=== PATIENT | male | born 1955 ===

== ENCOUNTER 2024-02-07 08:28 | Emergency (ER) | payer MEDICARE, SELFPAY ==
[2024-02-07 08:35] VITALS: BP 122/64; PULSE 63; RESP 16; TEMP 36.1; O2SAT 98; BMI 23.0
--- NOTE | 2024-02-07 08:46 | ED_ITS ---
HPI - General Adult General Chief complaint: Extremity Pain/Injury, Upper Stated complaint: Fall yesterday, L arm injury Time Seen by Provider: 02/07/24 08:35 Source: patient Mode of arrival: ambulatory Limitations: no limitations History of Present Illness HPI narrative: 69-year-old male presenting today with left arm pain. Pain started yesterday after he fell onto a bench onto his left side. He denies pain anywhere else. He did not hit his head or lose consciousness. The discomfort bothered him in the middle of the night. He is able to move that arm without difficulty. Related Data Home Medications ?Medication ?Instructions ?Recorded ?Confirmed abiraterone 250 mg tablet tab PO 01/02/22 01/05/24 atorvastatin 20 mg tablet 20 mg PO 01/02/22 01/05/24 divalproex 250 mg tablet,extended tab PO 01/02/22 01/05/24 release 24 hr divalproex 500 mg tablet,extended tab PO 01/02/22 01/05/24 release 24 hr ferrous sulfate, dried 159 mg (45 tab PO 01/02/22 01/05/24 mg iron) tablet,extended release (iron ER) haloperidol 10 mg tablet 10 mg PO 01/02/22 01/05/24 haloperidol 5 mg tablet 5 mg PO 01/02/22 01/05/24 prednisone 5 mg tablet 5 mg PO 01/02/22 01/05/24 propranolol 60 mg capsule,24 cap PO 01/02/22 01/05/24 hr,extended release risperidone microspheres 50 mg/2 ea IM 01/02/22 01/05/24 mL intramuscular susp,ext release (Risperdal Consta) thiothixene 5 mg capsule 5 mg PO 01/02/22 01/05/24 diphenhydramine HCl 50 mg capsule mg PO 01/05/24 01/05/24 (Banophen) hydrocortisone 10 mg tablet mg PO 01/05/24 01/05/24 thiothixene 10 mg capsule 10 mg PO QPM 01/05/24 02/07/24 Previous Rx's ?Medication ?Instructions ?Recorded ibuprofen 600 mg tablet 600 mg PO TID PRN pain #30 tabs 01/02/22 Allergies Allergy/AdvReac Type Severity Reaction Status Date / Time gemfibrozil (From Lopid) Allergy Unknown Verified 02/07/24 08:39 Review of Systems Status of ROS: Reports: 6 or more systems reviewed and unremarkable except as noted in History and below [facility] Social History Smoking Status: Current some day smoker Exam Narrative: Exam Narrative: Well-nourished patient in no acute distress. Alert and oriented. Answers questions appropriately. Mood and affect are appropriate. Thoughts are goal oriented and rational. No tangential or magical thinking noted. Patient speaks in full sentences without needing to catch breath. HEENT: Normocephalic atraumatic. Extremities: Normal appearance peers there is no swelling, erythema or ecchymosis noted of the left upper extremity. He has full range of motion at the shoulder and elbow without significant difficulty. He has mild tenderness to palpation of the mid humerus. When I talked to him he puts his left elbow on his knee and rests his head on his left hand without discomfort. Const: Vital Signs, click to edit/add: Vital Signs - 24 hr 02/07/24 08:35 Temperature 97 F L Pulse Rate [Right Pulse Oximeter] 63 Respiratory Rate 16 Blood Pressure [Ri ght Upper Arm] 122/64 Pulse Oximetry 98 Oxygen Delivery Me thod Room Air Course Vital Signs Vital signs: Initial Vital Signs Temperature 97 F L 02/07/24 08:35 Temperature Source Temporal Artery Scan 02/07/24 08:35 Pulse Rate 63 02/07/24 08:35 Pulse Rhythm Regular 02/07/24 08:35 Pulse Strength 3+ Normal 02/07/24 08:35 Respiratory Rate 16 02/07/24 08:35 Blood Pressure 122/64 02/07/24 08:35 Blood Pressure Mean 83 02/07/24 08:35 Blood Pressure Position Sitting 02/07/24 08:35 Pulse Oximetry 98 02/07/24 08:35 Oxygen Delivery Method Room Air 02/07/24 08:35 Vital Signs Temperature 97 F L 02/07/24 08:35 Pulse Rate 63 02/07/24 08:35 Respiratory Rate 16 02/07/24 08:35 Blood Pressure 122/64 02/07/24 08:35 Pulse Oximetry 98 02/07/24 08:35 Oxygen Delivery Method Room Air 02/07/24 08:35 Temperature 97 F L 02/07/24 08:35 Pulse Rate 63 02/07/24 08:35 Respiratory Rate 16 02/07/24 08:35 Blood Pressure 122/64 02/07/24 08:35 Pulse Oximetry 98 02/07/24 08:35 Oxygen Delivery Method Room Air 02/07/24 08:35 Medical Decision Making MDM Narrative Medical decision making narrative: Contusion of the left upper extremity. I do not see any evidence of fracture on examination today. Discussed symptomatic treatment. Discharge Plan Discharge Clinical Impression: Contusion of arm, left Patient Disposition: Home, Self-Care Condition: Stable Instructions: Contusion in Adults (ED) Additional Instructions: Okay to use Tylenol 1000 mg every 8 hours as needed. Okay to ice or heat the area, do not apply ice or heat directly to the skin or use for more than 20 minutes at a time. Prescriptions: No Action thiothixene 5 mg capsule 5 mg PO abiraterone 250 mg tablet PO haloperidol 10 mg tablet 10 mg PO haloperidol 5 mg tablet 5 mg PO prednisone 5 mg tablet 5 mg PO iron 159 mg (45 mg iron) tablet extended release PO Risperdal Consta 50 mg/2 mL suspension,extended rel recon IM divalproex 250 mg tablet extended release 24 hr PO divalproex 500 mg tablet extended release 24 hr PO propranolol 60 mg capsule,extended release 24 hr PO atorvastatin 20 mg tablet 20 mg PO ibuprofen 600 mg tablet 600 mg PO TID PRN (Reason: pain) Qty: 30 0RF diphenhydramine HCl [Banophen] 50 mg capsule PO hydrocortisone 10 mg tablet PO thiothixene 10 mg capsule 10 mg PO QPM Follow Up/Referrals: Castro Fung MD [Primary Care Provider] - Stand Alone Forms: [facility] Info Instructions
== END 2024-02-07 09:00 | disposition home or self-care (01) ==
LOC: ED 08:50
PROVIDERS: Emergency Provider Family Medicine; PCP Family Medicine
DX: S50.12XA Contusion of left forearm, initial encounter (principal)
CPT/HCPCS: 99283

== ENCOUNTER 2024-08-26 07:29 | Outpatient (CLI) | payer MEDICARE, SELFPAY ==
--- OUTSIDE RECORDS SUMMARY | 2017-06-16 06:19 | XMS_ITS | Continuity of Care Document ---
Author Organization [facility] Address [address] [address] [place] [address] Phone Care Team Providers Care Oracle Pl Sql Developer Name Role Phone Link Charles ESCALERA Unavailable Unavailable Medications Medication Instructions Dosage Effective Dates (start - stop) Status Comments MiralaxBisacodylMagCit Colon Prep Use as directed - Active Advance Directives Directive Yes / No Effective Date File Name No Information Encounters Encounter Description Practice Location Reason(s) For Visit Diagnoses Date Provider Providers Copied on Encounter [facility], [address] [address], [place], [place], [id number], [place] tel:[phone] [facility] No Information 8 Link MD Soto. [address] [facility], [facility] [address], [place], [place], [id number], [place]. tel:[phone] [facility], [address] [address], [place], [place], [id number], [place] tel:[phone] No Information 8 No Information Referring Provider: Lv Joiner MD, [address] [place], [address]. tel:[phone] Family History Family Member Type Diagnosis Age At Onset No Information Payers Payer name Insurance type Covered alliance party ID Authoriza tion(s) No Information Social History Type Description Quantity Date Captured Comments Sex Male Smoking Status No Information Chief Complaint And Reason For Visit No Information Reason For Referral Reason For Referral No Information History Of Present Illness Encounter Date Complaint History Of Prese nt Illness No Information Functional Status Date Functional Assessmen t No Information Instructions Date Instruction Additional Infor mation No Information Assessments Type Assessment Date No Information Patient Care Teams Name Effective Dates (start - stop) Status Members No Information
--- OUTSIDE RECORDS SUMMARY | 2024-08-26 09:01 | XMS_ITS | Clinical Summary ---
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 Name Role Phone Julian Bartholomew MD Unavailable Danish Horton MD Primary Care Provider + Isabel Romero RN Unavailable [phone] Allergies Active Allergy Reactions Criticality Noted Date Comments Bee Pollen Other - Describe In Comment Field 12/12/2021 Seasonal allergies, nasal congestion Gemfibrozil Dizziness 08/25/2013 Pollen Extracts Other - Describe In Comment Field 12/12/2021 Seasonal allergies, nasal congestion Tamsulosin Other - Describe In Comment Field,Nausea Only 01/24/2014 priapism Medications acetaminophen (TYLENOL) 325 mg tablet Take 1 tablet by mouth every 4 hours if needed. Max acetaminophen dose: 4000mg in 24 hrs. 0 03/25/19 19 Active aspirin (ECOTRIN) 81 mg enteric coated tabletIndications :Mixed hyperlipidemia Take 1 tablet by mouth once daily with a meal. 90 tablet 3 01/11/20 20 Active vitamin e 400 unit capsuleIndication s:Neuroleptic-ind uced tardive dyskinesia,Schizo phrenia, unspecified type (HC) Take 1 Capsule (400 units) by mouth once daily. 0 01/18/20 21 Active Wnlxp-7-IUX-EPA-F lianne Oil 1,000 mg (120 mg-180 mg) cap Take 1 Capsule (1,000 mg) by mouth. 0 09/13/19 22 Active cyanocobalamin (Vitamin B-12) 50 mcg tabletIndications :Recurrent depression Take 2 Tablets (100 mcg) by mouth once daily. 30 Tablet 11 01/01/20 Active abiraterone 500 mg tab 02/08/20 Active potassium chloride (KLOR-CON M20) 20 mEq extended-release tablet (part/cryst) 01/09/20 Active hydrocortisone (CORTEF) 10 mg tablet Take 2 tabs with breakfast and 1 with evening breakfast/dinner . Take for duration of Zytiga therapy. 02/05/20 Active cholecalciferol, Vitamin D3, 2,000 unit tabletIndications :Vitamin D deficiency TAKE 1 TABLET BY MOUTH DAILY 28 Tablet 12 03/05/20 23 Active VITAMIN E, BULK, MISC As directed 400 units. once daily. Active ibuprofen (ADVIL; MOTRIN) 200 mg tablet Take 200 mg by mouth. 1 - 2 tablets q 4 - 6 hours as needed for pain Active loperamide (IMODIUM) 2 mg capsule 2 mg. Take 2 capsules (4mg) orally with 1st loose stool, then 1 capsule (2mg) with other loose stools. Max 16 mg in 24 hrs. Active mag hydrox/aluminum hyd/simeth (MAALOX ORAL) Take by mouth. 1 - 2 tsp (5 - 10 ml) PO one time daily between meal and at bedtime as needed for heartburn and/or upset stomach Active magnesium hydroxide (MILK OF MAGNESIA ORAL) Take by mouth. take 1 - 2 tbsp (15 - 30 ml) PO every day (preferably at bedtime) as needed for constipation. Recommend 8 oz of water after each dose. Noitfy nurse if no results within 12 hours. Active Slow Release Iron 142 mg (45 mg iron) Extended-Release tabletIndications :Anemia of unknown etiology TAKE 1 TABLET BY MOUTH DAILY 28 Tablet 12 12/29/19 24 Active Diaper,Brief, Adult,Disposable (Prevail Underwear)Indicat ions:Continuous urine leakage USE DIRECTED UP 3-4 TIMES PER DAY 400 Each 2 02/26/20 24 Active polyethylene glycol-electrolyt e (GOLYTELY) 236-22.74-6.74 -5.86 gram suspensionIndicat ions:Encounter for screening colonoscopy Drink 2 liters (half the bottle) the day before colonoscopy and 2 liters (remaining prep) 6 hours prior to colonoscopy appointment. 4000 mL 04/08/19 25 Active propranolol ER (INDERAL LA) 60 mg Cs24 Sustained-Release capsuleIndication s:Drug-induced tremor Take 1 Capsule (60 mg) by mouth once daily. 90 Capsule 3 05/10/19 25 Active thiothixene 10 mg capsuleIndication s:Schizoaffective disorder, bipolar type (HC) Take 1 Capsule (10 mg) by mouth once daily in the morning. 90 Capsule 3 05/10/19 25 Active thiothixene 5 mg capsuleIndication s:Schizoaffective disorder, bipolar type (HC) Take 1 Capsule (5 mg) by mouth at bedtime. In addition to the morning dose 90 Capsule 3 05/10/19 25 Active diphenhydrAMINE (Diphenhist) 25 mg capsuleIndication s:Insomnia due to mental condition,Adjustm ent disorder with anxiety May take 1 capsule (25 mg) by mouth as needed 2 times a day for anxiety, please wait at least 2 hours between doses 90 Capsule 3 05/10/19 25 Active diphenhydrAMINE (BENADRYL) 50 mg capsuleIndication s:Schizoaffective disorder, bipolar type (HC),Insomnia due to mental condition,Adjustm ent disorder with anxiety Take 1 Capsule (50 mg) by mouth three times daily. Wait at least 4 hours between doses 270 Capsule 3 05/10/19 25 Active atorvastatin 20 mg tabletIndications :Mixed hyperlipidemia Take 1 Tablet (20 mg) by mouth once daily. 90 Tablet 07/27/19 25 Active polyethylene glycol-electrolyt e 236-22.74-6.74 -5.86 gram suspensionIndicat ions:Encounter for screening colonoscopy Drink 2 liters (half the bottle) the day before the procedure and 2 liters (half the bottle) 6 hours prior to procedure. 4000 mL 08/12/19 25 Active ibuprofen (ADVIL; MOTRIN) 600 mg tabletIndications :Body aches Take 1 Tablet (600 mg) by mouth 4 times daily if needed for Pain. Maximum of 3200 mg in 24 hours. 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 tremor 12/23/2021 Iron deficiency anemia 11/04/2021 Overview (11/04/2021): Per pathology review of the slides/labs 10/2021 Increasing prostate specific antigen (PSA) level after treatment for malignant neoplasm of prostate 09/16/2021 Primary malignant neoplasm of prostate 1 Vitamin D deficiency 11/05/2020 DDD (degenerative disc disease), lumbar 08/11/19 19 Encephalopathy 12/24/2017 Schizoaffective disorder, bipolar type 8 Long-term use of high-risk medication 07/28/2017 Drug overdose 05/18/2017 H/O prostate cancer 03/17/2017 Stress incontinence 11/23/2015 Erectile dysfunction following radical prostatec ysabel 12/11/2014 Family history of coronary artery disease 2014 Attempted suicide 01/13/2014 Adjustment disorder with anxiety 11/23/2013 Alcohol use disorder, severe , in sustained remission since 200810/17/2013 Overview (10/10/2021): Overview: Alcoholism Pers Hx per External Record Alcoholism Pers Hx per External Record Mixed hyperlipidemia 09/10/2010 Impaired fasting glucose 09/10/2010 Family history of colon cancer 09/06/2010 Overview (09/06/2010): Siblings have colon polyps Colon polyps 09/06/2010 Overview (05/04/2019): Colonoscopy 04/2011 polyps repeat in 3 years Colonoscopy 04/2014 polyps repeat in 5 years Colonoscopy 04/2019 polyp, repeat in 5 years Resolved Problems Problem Noted Date Diagnosed Date Resolved Date Schizoaffective disorder, chronic condition 12/12/2017 12/22/2017 Schizoaffective disorder 11/27/201710/2021 Neuroleptic-induced tardive dyskinesia 01/21/2017 12/14/2023 Dementia praecox 11/23/2013 09/13/2021 Recurrent depression 10/20/2013 022 Prostate cancer 07/06/2013 12/22/2017 Overview (11/15/2013): Delvis 3+4=7 Other schizoaffective disorders 09/06/2010 12/12/2017 Encounters Date Type Department Care Team Description 08/26/2024 Travel 08/11/2024 Orders Only [facility] [address] [place] [address] Orlando Bowen MD <No scans attached> 08/11/2024 Telephone [facility] [address] [place] [address] Danish Horton MD request (fax) 08/05/[address] [address] Danish Horton MD Refill Request ( ) 08/04/[address] [address] Danish Horton MD Form 07/26/2024 10:00 AM CDT Office Visit [address] [place] [address] Danish Horton MD Preoperative Exam (Colonoscopy, 08/19/24, [place], Dr. Bowen) 07/26/2024 Travel 07/25/[address] [place] [address] Orlando Bowen MD Appointment (Colonoscopy) 07/25/[address] [place] [address] Orlando Bowen MD Appointment 06/16/[address] [address] Danish Horton MD Refill Request (Atorvastatin) from Last 3 Months Immunizations Immunization Administration Dates Next Due COVID-19 VACCINE SPIKEVAX (M ODERNA 50MCG/0.5ML) 12YO+ PFS 12/31/2022 COVID-19 vaccine (Moderna 100mcg/0.5mL) AVELINA DEWEY 08/15/2021,01/14/2021,04/19/2020,2020 Influenza RIV4 (Age 18+ Year s) PRESERV FREE 01/14/2021 Influenza, High-dose Inactivated 12/15/2023 Influenza, Inactivated AIIV4 (Age 65+ Years) Preserv Free 12/31/2022,01/14/2021,01/06/2020,2019 Pneumococcal Conj 20-valent (Prevnar 20) 01/06/2022 Pneumococcal conj 13-Valent (Prevnar 13) 11/05/2020 Td (Age >=7 Years) 10/02/2007 Td, Preservative Free (age > = 7 Years) 10/02/2007 Tdap 09/06/2010 Family History Medical History Relation Name Comments Psychiatric illness Brother schizoph rylan Suicide Attempts Brother incomplete Cancer-colon Father d 71 Cancer-prostate Father Heart Disease Maternal Grandfather [place] Heart Disease Maternal Grandmother [place] Other Mother b 1927 moved to assisted living 10/2020 Other Other all 8 sibs have polyps Relation Name Status Comments Brother Father (Age 72) Prostate a nd colon cancer Maternal Grandfather Maternal Grandmother Mother Alive Other Social History Tobacco Use Types Packs/Day Years Used Date Smoking Tobacco: Some Days Cigars Smokeless Tobacco: Never Tobacco Cessation:Ready to Q uit: No; Counseling Given: Yes Alcohol Use Standard Drinks/Week Comments Yes 0 (1 standard drink = 0.6 oz pur e alcohol) 1 courtney a month PHQ-2 Answer Date Recorded PHQ-2 TOTAL SCORE 0 05/09/2024 Social Connections Answer Date Recorded Do you often feel lonely or isolated from those around you? 0 07/26/2024 Alcohol Use Answer Date Recorded How often do you have a drink containing alcohol ? 1 10/10/2021 How many drinks containing a lcohol do you have on a typical day when you are drinking? 0 10/10/2021 How often do you have five or more drinks on one occasion? 0 10/10/2021 Financial Resource Strain Answer Date R ecorded Difficulty of Paying Living Expenses 3 07/26/2024 Difficulty of Paying Living Expenses Not on file 07/26/2024 Food Insecurity Answer Date Recorded Do you worry your food will run out before you are able to buy more? 1 07/26/2024 Transportation Needs Answer Date Record ed Does lack of transportation keep you from medica l appointments? 1 07/26/2024 Does lack of transportation keep you from work, meetings or getting things that you need? 1 07/26/2024 Housing Stability Answer Date Recorded What is your housing situation today? 1 07/26/2024 Utilities Answer Date Recorded Do you have trouble paying f or utilities (for example, heat, electricity, water, phone)? 1 07/26/2024 Education Answer Date Recorded What is the highest level of school you have completed or the highest degree you have received? Associate degree: occupational, technical, or vocational program 09/13/2021 Sex and Gender Information Value Date Recorded Sex Assigned at Not on file Legal Sex Male 8:10 AM [employer] Gender Identity Not on file Sexual Orientation Not on file Occupation Industry Job Start Date Job End Date Not on file Not on file Not on file Not on file Not on file Not on file Not on file Not on file Obstetrics History Last Filed Vital Signs Vital Sign Reading Time Taken Comments Blood Pressure 133/63 07/26/2024 9:47 AM CDT Pulse 62 07/26/2024 9:47 AM CDT Temperature 36.4 C (97.5 F) 07/26/2024 9:47 AM CDT Respiratory Rate 16 12/22/2017 3:21 AM CDT Oxygen Saturation 98% 07/26/2024 9:47 AM CDT Inhaled Oxygen Concentration - - Weight 70.6 kg (155 lb 9.6 oz) 07/26/2024 9:47 A M CDT Height 172.7 cm (5' 8) 07/26/2024 9:47 AM CDT Body Mass Index 23.66 07/26/2024 9:47 AM CDT Plan of Treatment Upcoming Encounters Date Type Department Care Team (Late st Contact Info) Description 09/06/2024 2:00 PM CDT Office Visit [facility] [address] [place] [address] David Linder MD [address] [place] [address] Health Maintenance Due Date Last Done Comments Zoster (shingles) series for age 50+ (1 of 2) 1973 RSV vaccine for adults or (1 - Risk 60-74 years 1-dose series) 2014 AAA screening age 65-74 2019 07/12/2013 Tetanus booster 09/06/2020 09/06/2010, 09/07, 10/02/2007 Medicare Wellness for age 65+ 01/01/2024 12/31/2022, 11/05/2020, 08/10/2018, Additional history exists COVID-19 vaccine series (8 - Moderna risk season) 2024 12/15/2023, 12/31/2022, 12/17/2021, Additional history exists Depression screening for age 12+ 05/09/2025 05/09/2024, 12/14/2023, 05/26/2023, Additional history exists BMI (ht and wt on same day) for age 18+ 07/26/2025 07/26/2024, 05/26/2023, 05/18/2023, Additional history exists Lipids for age 45-75 10/26/2028 10/27/2023, 09/23/2022, 09/12/2021, Additional history exists Colonoscopy through age 75 08/26/202908/26, 05/03/2019, 05/03/2019, Additional history exists Tdap Completed 09/06/2010 Hepatitis C screening for age 18-79 Completed 01/11/2020 Pneumococcal series for age 50+ Completed 01/06/2022, 11/05/2020 Influenza Vaccine Completed 12/15/2023, , 01/14/2021, Additional history exists Hepatitis B series for 19+ Aged Out N o longer eligible based on patient's age to complete this topic Goals Goal Patient Goal Type Associated Problems Recent Progress Patient-Stated? Author BLOOD PRESSURE - MAINTAINS BP less than 140/90 Blood Pressure No Castro Fung MD Procedures Procedure Name Priority Date/Time Associated Diagnosis Comments COLONOSCOPY SCREENING Routine 08/26/2024 7:17 AM CDT Encounter for screening colonoscopy LIPID PANEL W REFLEX MEASURED LDL Routine 10/27/2023 1:06 PM CDT Long-term use of high-risk medication ANTI HCV Routine 01/11/2020 12:07 PM [employer] Need for hepatitis C screening test CT ABDOMEN PELVIS W Routine 07/12/2013 1 1:01 AM CDT Malignant neoplasm of prostate (HC) from Last 3 Months or Most Recently Relevant to Health Maintenance Results * (ABNORMAL) LIPID PANEL W REFLEX MEASURED LDL (10/27/2023 1:06 PM CDT) CHOLESTEROL,TOTAL 160 100 - 199 mg/dL 10/27/2023 11:32 PM CDT [facility] Comment: Cholesterol, Total Reference Ranges Desirable <200 mg/dL Borderline 200-239 mg/dL High >=240 mg/dL TRIGLYCERIDES 200(H) <150 mg/dL 10/27/2023 11:32 PM CDT [facility] HDL CHOLESTEROL 39(L) >40 mg/dL 11:32 PM CDT [facility] NON-HDL CHOLESTEROL 121 <145 mg/dl 10/27/2023 11:32 PM CDT [facility] CHOL/HDL RATIO 4.10 <4.50 10/27/2023 11:32 PM CDT [facility] LDL CHOLESTEROL 81 <=130 mg/dL 10/27/2023 11:32 PM CDT [facility] VLDL CHOLESTEROL 40(H) <=30 mg/dL 10/27/2023 11:32 PM CDT [facility] PROVIDER ORDERED STATUS RANDOM 10/27/2023 11:32 PM CDT [facility] Blood BLOOD SPECIMEN / Unknown Venipuncture / Unknown 10/27/2023 1:06 PM CDT 10/27/2023 1:07 PM CDT us David Linder MD CHEMISTRY Final Result [facility] [address] [place] [address], * ANTI HCV (01/11/2020 12:07 PM [employer]) HEPATITIS C ANTIBODY Non-React dread Non-React dread 01/11/2020 6:50 PM [employer] [facility] Comment:Antibodies to HCV no t detected; does not exclude the possibility of exposure to HCV. Blood BLOOD SPECIMEN / Unknown Venipuncture / Unknown 01/11/2020 12:07 PM [employer] 01/11/2020 12:07 PM [employer] us Castro Fung MD SEND OUTS Final Re sult [facility] [address] [place] [address], [place] * COLONOSCOPY (05/03/2019 8:39 AM [employer]) 05/03/2019 8:39 AM [employer] Narrative Transcriptions Orlando Bowen MD - 05/03/2019 11:11 AM CST Patient Name: Jesus Trevino Procedure Date: 05/03/2019 Gender: Male Date of : 1955 Admit Type: Outpatient Procedure: Colonoscopy Proceduralist: Orlando Bowen MD , Michelle Horan (Nurse) Indications/Pre-Op Diagnosis: Surveillance: Personal history ofadenomatous polyps on last colonoscopy 5 years ago, Last colonoscopy: April 2014 Medications: Fentanyl 100 micrograms IV, Midazolam 2 mgIV, The level of sedation administered wasmoderate Procedure Description: The patient had risks, benefits and alternatives explained to andgave informed consent. The patient had a stable cardiopulmonary status and judged an adequate candidate for conscious sedation. The Colonoscope was passed through the anus and advanced to thececum, identified by appendiceal orifice and ileocecal valve. Thecolonoscopy was performed without difficulty. The patient tolerated the procedure well. The quality of the bowel preparation was good. The ileocecal valve, appendiceal orifice, and rectum were photographed. Complications: No immediate complications. Estimated Blood Loss & Specimen: Estimated blood loss: none. Specimen collected - Yes and sent to Laboratory Findings: The perianal and digital rectal examinations were normal. A 3 mm polyp was found in the sigmoid colon. The polyp was sessile.The polyp was removed with a cold snare. Resection and retrieval were complete. The exam was otherwise without abnormality on direct and retroflexion views. Impressions/Post-Op Diagnosis: - One 3 mm polyp in the sigmoid colon, removed with a cold snare. Resected and retrieved. - The examination was otherwise normal on direct and retroflexionviews. Recommendation: - Patient has a contact number available for emergencies. The signsand symptoms of potential delayed complications were discussed with the patient. Return to normal activities tomorrow. Written discharge instructions were provided to the patient. - Resume previous diet. - Continue present medications. - Await pathology results. - Repeat colonoscopy in 5 years for surveillance. Moderate Sedation: Moderate (conscious) sedation was administered by the endoscopy nurse and supervised by the endoscopist. The following parameters were monitored: oxygen saturation, heart rate, respiratory rate, blood pressure, adequacy of pulmonary ventilation and reponse to care. [facility] and nursing notes for moderate sedation details. Total physician intraservice time was 17 minutes. Orlando Bowen MD 05/03/2019 11:11:06 AM This report has been signed electronically. Note Initiated On: 05/03/2019 8:39 AM Procedure Code(s): --- Professional --- 04835, Colonoscopy, flexible; with removalof tumor(s), polyp(s), or other lesion(s) bysnare technique Diagnosis Code(s): --- Professional --- Z86.010, Personal history of colonicpolyps D12.5, Benign neoplasm of sigmoid colon CPT copyright 2018 [employer] [place] [employer]. All rights reserved. The codes documented in this report are preliminary and upon division field inspector reviewmay be revised to meet current compliance requirements. Scope In: 10:53:42 AM Scope Withdrawal Time 0 hours 9 minutes 6 seconds Scope Out: 11:08:53 AM us Orlando Bowen MD PROCEDURE ORD Final Res ult * CT ABDOMEN PELVIS W (07/12/2013 11:01 AM CDT) Anatomical Region Laterality Modality Abdomen, Pelvis, AORTA, LIVER, SPLEEN Computed Tomography 07/12/2013 11:2 8 AM CDT Narrative 07/12/2013 11:28 AM CDT INDICATION: Prostate cancer. Prior history of herniorrhaphy. Technique: Multi detector contrast-enhanced helical CT of the abdomen pelvis was performed with administration of oral and uneventful intravenous administration of 99 cc of Omnipaque 2nd 350. Sagittal coronal reformats generated. The all. Findings: There are fibroatelectatic changes are present at the lung bases bilaterally. No consolidations or masses seen. No mass is identified within the liver, spleen, adrenal glands or pancreas. A small accessory splenule is seen at the inferior tip of the spleen. No right renal masses are seen. Small cortical cyst at the lower pole of left kidney. No calcified gallstones are evident. The abdominal aorta is normal in caliber. There is prominence of the submucosal fat involving the transverse and descending colon which can be seen with chronic inflammatory bowel disease. No acute pericolonic inflammatory changes are seen. Mild colonic diverticulosis is evident. The prostate is heterogeneous. No bladder masses are seen. No significantly enlarged lymph nodes are appreciated. The appendix demonstrates a normal appearance. No convincing evidence of metastatic disease within the visualized osseous structures. There is suggestion of a hemangioma within the left proximal sacrum. Asymmetric prominence of the fat within the left inguinal canal. Impression: 1. No evidence of metastatic disease within the abdomen or pelvis. 2. Prominence of the submucosal fat in the colonic wall involving the transverse and descending colon. This finding can be seen with chronic inflammatory bowel disease. 3. Colonic diverticulosis without current evidence of diverticulitis. 4. Small cyst lower pole left kidney. Dictated by Papa Rowley @ Jul 12 2013 11:28AM (Electronically Signed) Procedure Note Eloy Rowley DO - 07/12/2013 INDICATION: Prostate cancer. Prior history of herniorrhaphy. Technique: Multi detector contrast-enhanced helical CT of the abdomen pelvis wasperformed with administration of oral and uneventful intravenousadministration of 99 cc of Omnipaque 2nd 350. Sagittal coronal reformatsgenerated. The all. Findings: There are fibroatelectatic changes are present at the lung basesbilaterally. No consolidations or masses seen. No mass is identifiedwithin the liver, spleen, adrenal glands or pancreas. A small accessorysplenule is seen at the inferior tip of the spleen. No right renal massesare seen. Small cortical cyst at the lower pole of left kidney. Nocalcified gallstones are evident. The abdominal aorta is normal incaliber. There is prominence of the submucosal fat involving thetransverse and descending colon which can be seen with chronicinflammatory bowel disease. No acute pericolonic inflammatory changes areseen. Mild colonic diverticulosis is evident. The prostate isheterogeneous. No bladder masses are seen. No significantly enlargedlymph nodes are appreciated. The appendix demonstrates a normalappearance. No convincing evidence of metastatic disease within thevisualized osseous structures. There is suggestion of a hemangioma withinthe left proximal sacrum. Asymmetric prominence of the fat within the leftinguinal canal. Impression: 1. No evidence of metastatic disease within the abdomen or pelvis. 2. Prominence of the submucosal fat in the colonic wall involving thetransverse and descending colon. This finding can be seen with chronicinflammatory bowel disease. 3. Colonic diverticulosis without current evidence of diverticulitis. 4. Small cyst lower pole left kidney. 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 01/26/2018 3:20 PM IVY MENDEZ, 01/21/18 * Full Code (Latest Code Status on File) Date Activated Date Inactivated Comments 12/11/2017 10:49 AM 12/22/2017 7:47 PM Question Answer Comments Code Status Discussion: Not Discussed * Full Code Date Activated Date Inactivated Comments 11/27/2017 4:52 PM 12/07/2017 2:50 PM Question Answer Comments Code Status Discussion: Not Discussed Care Teams Pickling Machine Operator Relationship Specialty Start Date End Date Votel, Danish Austin MD [address] [place] [address] PCP - General Family Practice 01/20/23 Julian Bartholomew MD Surgery - Urology 08/22/13 Isabel Romero, RN [facility] [address] [id number] [employer] - [facility] Registered Nurse 03/09/23 Rochelle Gilbert [place], [place] [id number] [employer] 06/10/24
--- NOTE | 2024-08-26 09:11 | P.ANES_ITS ---
Anesthesia Charges Start Date/Time Anesthesia Start Date: 08/26/24 Anesthesia Start Time: 08:34 Stop Date/Time Anesthesia Stop Date: 08/26/24 Anesthesia Stop Time: 09:09 Summary Extremes of Age - Over 70 or under 1: INTERNATIONAL TRAVEL CONSULTANT Coding CPT Codes CPT Codes: ANES LWR INTST NDSC NOS - 79266 ([id number]) P3 - PATIENT W/SEVERE SYS DISEASE, QX - INTERNATIONAL TRAVEL CONSULTANT SVC W/ MD MED DIRECTION, QK - BALANCE WHEEL SCREW HOLE TAPPER 2-4 CNCRNT ANES PROC Additional Codes: Summary - Extremes of Age - Over 70 or under 1: INTERNATIONAL TRAVEL CONSULTANT ([id number])
--- NOTE | 2024-08-26 09:11 | W.ANESCHARGE ---
Anesthesia Charges Start Date/Time Anesthesia Start Date: 08/26/24 Anesthesia Start Time: 08:34 Stop Date/Time Anesthesia Stop Date: 08/26/24 Anesthesia Stop Time: 09:09 Summary Extremes of Age - Over 70 or under 1: LEACH TANK TENDER Coding CPT Codes CPT Codes: ANES LWR INTST NDSC NOS - 74727 ([id number]) P3 - PATIENT W/SEVERE SYS DISEASE, QX - LEACH TANK TENDER SVC W/ MD MED DIRECTION, QK - CAR CHECKER 2-4 CNCRNT ANES PROC Additional Codes: Summary - Extremes of Age - Over 70 or under 1: LEACH TANK TENDER ([id number])
--- NOTE | 2024-08-26 09:22 | P.ANES_ITS ---
Anesthesia Charges Start Date/Time Anesthesia Start Date: 08/26/24 Anesthesia Start Time: 08:34 Stop Date/Time Anesthesia Stop Date: 08/26/24 Anesthesia Stop Time: 09:09 Summary Extremes of Age - Over 70 or under 1: MDA Coding CPT Codes CPT Codes: ANES LWR INTST NDSC NOS - 73812 ([id number]) QK - ADJUNCT INSTRUCTOR CHEMISTRY 2-4 CNCRNT ANES PROC, QX - SEISMOGRAPH OBSERVER SVC W/ MD MED DIRECTION, P3 - PATIENT W/SEVERE SYS DISEASE Additional Codes: Summary - Extremes of Age - Over 70 or under 1: MDA ([id number])
--- OUTSIDE RECORDS SUMMARY | 2024-08-27 00:48 | XMS_ITS | Clinical Summary ---
Author Organization [facility] Address [address] [place] [address] Care Team Providers Care Stationary Steam Engineer Name Role Phone Julian Bartholomew MD Unavailable [phone] Danish Horton MD Primary Care Provider + Isabel Romero RN Unavailable [phone] Allergies Active Allergy Reactions Criticality Noted Date [...] mouth once daily. 0 01/18/20 21 Active Eqsnh-5-GIG-EPA-F lianne Oil 1,000 mg (120 mg-180 mg) [...] Date Type Department Care Team Description 08/26/2024 7:45 AM CDT Office Visit [facility] [address] [place] [address] Orlando Bowen MD Arrived 08/26/2024 Travel 08/11/2024 Orders Only [facility] [address] [place] [address] Orlando Bowen MD <No scans attached> 08/11/[address] [place] [address] Danish Horton MD request (fax) 08/05/[address] [address] Danish Horton MD Refill Request ( ) 08/04/[address] [address] Danish Horton MD Form 07/26/2024 10:00 AM CDT Office Visit [facility] [address] [place] [address] Danish Horton MD Preoperative Exam (Colonoscopy, 08/19/24, [place], Dr. Bowen) 07/26/2024 Travel 07/25/2024 Telephone [facility] [address] [place] [address] Orlando Bowen MD Appointment (Colonoscopy) 07/25/[address] [place] [address] Orlando Bowen MD Appointment 06/16/[address] [place] [address] Danish Horton MD Refill Request (Atorvastatin) from Last 3 Months Immunizations Immunization Administration Dates Next Due COVID-19 VACCINE SPIKEVAX (M ODERNA 50MCG/0.5ML) 12YO+ PFS 12/31/2022 COVID-19 vaccine (Moderna 100mcg/0.5mL) MD MACOV 08/15/2021,01/14/2021,04/19/2020,2020 Influenza RIV4 (Age 18+ Year s) [...] 70 Cancer-prostate Father Heart Disease Maternal Grandfather [place] Heart Disease Maternal Grandmother [place] Other Mother b 1927 moved to assisted [...] on file 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 Gender Identity Not on file Sexual Orientation [...] Description 09/06/2024 2:00 PM CDT Office Visit [facility] [address] [place] [address] David Linder MD [address] [place] [address] Health Maintenance Due Date Last Done Comments [...] history exists Colonoscopy through age 74 08/26/202908/26, 08/26/2024, 05/03/2019, Additional history exists Tdap Completed 09/06/2010 [...] medication ANTI HCV Routine 01/11/2020 12:07 PM 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 MECHANIC Need for hepatitis C screening test CT ABDOMEN PELVIS W Routine 07/12/2013 1 1:01 AM CDT Malignant neoplasm of prostate (HC) from Last 3 Months or Most Recently Relevant to Health Maintenance Results * (ABNORMAL) LIPID PANEL W REFLEX MEASURED LDL (10/27/2023 1:06 PM CDT) CHOLESTEROL,TOTAL 160 100 - 199 mg/dL 10/27/2023 11:32 PM CDT [facility] Comment: Cholesterol, Total Reference Ranges Desirable <200 mg/dL Borderline 200-239 mg/dL High >=240 mg/dL TRIGLYCERIDES 200(H) <150 mg/dL 10/27/2023 11:32 PM CDT [facility] HDL CHOLESTEROL 39(L) >40 mg/dL 11:32 PM CDT [facility] NON-HDL CHOLESTEROL 121 <145 mg/dl 10/27/2023 11:32 PM CDT [facility] CHOL/HDL RATIO 4.10 <4.50 10/27/2023 11:32 PM CDT [facility] LDL CHOLESTEROL 81 <=130 mg/dL 10/27/2023 11:32 PM CDT [facility] VLDL CHOLESTEROL 40(H) <=30 mg/dL 10/27/2023 11:32 PM CDT [facility] PROVIDER ORDERED STATUS RANDOM 10/27/2023 11:32 PM CDT [facility] Blood BLOOD SPECIMEN / Unknown Venipuncture / Unknown 10/27/2023 1:06 PM CDT 10/27/2023 1:07 PM CDT us David Linder MD CHEMISTRY Final Result [facility] [address] [place] [address], * ANTI HCV (01/11/2020 12:07 PM VENETIAN BLIND MECHANIC) HEPATITIS C ANTIBODY Non-React dread Non-React dread 01/11/2020 6:50 PM VENETIAN BLIND MECHANIC [facility] Comment:Antibodies to HCV no t detected; does not exclude the possibility of exposure to HCV. Blood BLOOD SPECIMEN / Unknown Venipuncture / Unknown 01/11/2020 12:07 PM VENETIAN BLIND MECHANIC 01/11/2020 12:07 PM VENETIAN BLIND MECHANIC Castro Fung MD SEND OUTS Final Re sult [facility] [address] [place] [address], [place] * COLONOSCOPY (05/03/2019 8:39 AM VENETIAN BLIND MECHANIC) 05/03/2019 8:39 AM VENETIAN BLIND MECHANIC Narrative Transcriptions Orlando Bowen MD - 05/03/2019 [...] reponse to care. [facility] medical record flowsheets and nursing notes for moderate sedation details. Total physician intraservice time was 17 minutes. Orlando Bowen MD 05/03/2019 11:11:06 AM This report has been signed electronically. Note Initiated On: 05/03/2019 8:39 AM Procedure Code(s): --- Professional --- 28731, Colonoscopy, flexible; with removalof tumor(s), polyp(s), or other lesion(s) bysnare technique Diagnosis Code(s): --- Professional --- Z86.010, Personal history of colonicpolyps D12.5, Benign neoplasm of sigmoid colon CPT copyright 2018 [employer]. All rights reserved. The codes documented in this report are preliminary and upon pencils washer reviewmay be revised to meet current compliance [...] 2013 11:28AM (Electronically Signed) Procedure Note Eloy Rowley, - 07/12/2013 INDICATION: Prostate cancer. 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 01/26/2018 3:20 PM IVY MENDEZ, 01/21/18 * Full Code (Latest Code Status on File) Date Activated Date Inactivated Comments 12/11/2017 10:49 AM 12/22/2017 7:47 PM Question Answer Comments Code Status Discussion: Not Discussed * Full Code Date Activated Date Inactivated Comments 11/27/2017 4:52 PM 12/07/2017 2:50 PM Question Answer Comments Code Status Discussion: Not Discussed Care Teams Stationary Steam Engineer Relationship Specialty Start Date End Date Votel, Danish Austin MD [address] [place] [address] PCP - General Family Practice 01/20/23 Julian Bartholomew MD Surgery - Urology 08/22/13 Isabel Romero RN [facility] [address] [id number] Admissions Dean - Ofelia PARRISH Registered Nurse 03/09/23 Rochelle Gilbert [place], [place] [phone] Networking Administrator 06/10/24
== END 2024-08-26 07:30 | disposition home or self-care (01) ==
LOC: OP CLINIC 07:34
PROVIDERS: PCP Family Medicine; Visit Provider Internal Medicine Gastroenterology
DX: Z12.11 Encounter for screening for malignant neoplasm of colon (principal); Z86.0101 Personal history of adenomatous and serrated colon polyps; D12.2 Benign neoplasm of ascending colon; D12.4 Benign neoplasm of descending colon; D12.5 Benign neoplasm of sigmoid colon; K57.30 Diverticulosis of large intestine without perforation or abscess without bleeding
CPT/HCPCS: 00811; 45385; 88305; 99100; J2704